=== PATIENT | female | born 1950 | race Caucasian/White ===

== ENCOUNTER 2020-07-02 18:02 | Emergency (ER) | payer MEDICARE ==
[2020-07-02] MEDS ORDERED: PERCOCET 5/325 T1 EA PO (21:27)
== END 2020-07-02 21:45 | disposition home or self-care (01) ==
LOC: ER1 18:02
DX: S42.211A Unspecified displaced fracture of surgical neck of right humerus, initial encounter for closed fracture (principal); J45.909 Unspecified asthma, uncomplicated; I10 Essential (primary) hypertension; E11.9 Type 2 diabetes mellitus without complications; Z91.013 Allergy to seafood; Z88.0 Allergy status to penicillin; Z79.899 Other long term (current) drug therapy; W18.30XA Fall on same level, unspecified, initial encounter; Y92.009 Unspecified place in unspecified non-institutional (private) residence as the place of occurrence of the external cause; Z90.710 Acquired absence of both cervix and uterus
CPT/HCPCS: 73030; 73060; 73090; 73110; 96374; 99283; J2270